=== PATIENT | female | born 1945 | race Caucasian/White ===

== ENCOUNTER 2018-09-18 12:12 | Outpatient (CLI) | payer MEDICARE, OTHER ==
--- NOTE | 2018-09-18 20:06 | RAD ---
LEFT HIP TWO VIEWS: 09/18/18 No fracture was seen. There is slight narrowing of the joint space. The articular surfaces are smooth . The adjacent pubic ring appears intact. IMPRESSION: No acute joint finding. POS: HOME
== END 2018-09-18 12:13 | disposition home or self-care (01) ==
LOC: BURRAD 12:12
PROVIDERS: ATTEND Nurse Practitioner
DX: M25.552 Pain in left hip (principal)